=== PATIENT | male | born 1970 | race African-American/Black ===

== ENCOUNTER 2019-01-25 11:42 | Emergency (ER) | payer OTHER ==
[2019-01-25 12:06] VITALS: BP 106/76; PULSE 72; TEMP 98.2; BMI 20.8
[2019-01-25] MEDS ORDERED: SODIUM CHLORIDE 1,000 ML IV STA (12:53)
--- NOTE | 2019-01-25 12:54 | PDOC ---
History of Present Illness - General Chief Complaint: Pain Stated Complaint: ABD PAIN Time Seen by Provider: 01/25/19 12:21 History Source: Patient Exam Limitations: No Limitations - History of Present Illness Initial Comments: 01/25/19 12:43 48 yo male pmh of right inguinal hernia repair and recurrent kidney stones requiring 3 surgical removals presents to the ED for LUQ pain radiating to left flank. Pt states the pain started 1 month ago, intermittent, made worse and is mainly present with walking, denies correlation of pain with food. Denies changes in bladder habits, F/C/N/V, denies back pain, CP, SOB, alcohol use. Pt does not recall Urologist. Past History - Past Medical History Allergies/Adverse Reactions: Allergies Allergy/AdvReac Type Severity Reaction Status Date / Time Penicillins Allergy Mild Verified 05/27/12 19:26 Home Medications: Ambulatory Orders No Home Medications 0 dose .ROUTE UTDICT 05/27/12 Oxycodone HCl/Acetaminophen [Percocet 5-325 mg Tablet] 1 - 2 tab PO Q6H #20 tablet 05/28/12 COPD: No Kidney Stones: Yes - Surgical History Abdominal Surgery: Yes (hernia repair) - Immunization History Immunization Up to Date: No - Suicide/Smoking/Psychosocial Hx Smoking Status: Yes Smoking History: Unknown if ever smoked Years of Tobacco Use: 20 Have you smoked in the past 12 months: No Number of Cigarettes Smoked Daily: 8 Information on smoking cessation initiated: No Hx Alcohol Use: No Drug/Substance Use Hx: No *Physical Exam - Vital Signs Last Vital Signs Temp Pulse Resp BP Pulse Ox 98.2 F 72 18 106/76 100 01/25/19 11:55 01/25/19 11:55 01/25/19 11:55 01/25/19 11:55 01/25/19 11:55 *DC/Admit/Observation/Transfer Diagnosis at time of Disposition: Abdominal pain - Discharge Dispostion Disposition: HOME Condition at time of disposition: Stable Decision to Admit order: No - Referrals Referrals: Blake Ryan MD [Primary Care Provider] - - Patient Instructions Printed Discharge Instructions: DI for Abdominal Pain-Adult Additional Instructions: Please see your Primary Doctor within the next 48 hours and discuss the X ray results printed out for you regarding a nodule. Take over the counter pain medication as needed such as Motrin or Tylenol for continued pain. Return to the ER for new or concerning symptoms including but not limited to: inability to eat or drink, high fevers, severe abdominal pain, chest pain. Thank you - Post Discharge Activity
[2019-01-25 13:20] LABS: PH,URINE 5.5 (5.0-8.0); URINE APPEARANCE CLEAR; URINE BILIRUBIN NEGATIVE (NEGATIVE); URINE COLOR YELLOW; URINE GLUCOSE (UA) NEGATIVE (NEGATIVE); URINE KETONE TRACE (NEGATIVE); URINE LEUK ESTERASE NEGATIVE (NEGATIVE); URINE NITRITE NEGATIVE (NEGATIVE); URINE PROTEIN NEGATIVE (NEGATIVE)
[2019-01-25] MEDS ORDERED: KETOROLAC TROMETHAMINE 15 MG/ML VIAL IVPUSH ONE (13:35)
[2019-01-25] MEDS ORDERED: KETOROLAC TROMETHAMINE 15 MG/ML VIAL ONE (13:38)
[2019-01-25 13:42] LABS: BASO % 0.7 % (0-2.0); EOS % 1.3 % (0-4.5); HEMATOCRIT 40.1 % (35.4-49); HEMOGLOBIN 13.6 GM/dL (11.7-16.9); LYMPH % 31.8 % (8-40); MCH 30.7 pg (25.7-33.7); MEAN CELL VOLUME 90.6 fl (80-96); MEAN PLT VOLUME 7.5 fl (7.5-11.1); MONO % 13.6 % (3.8-10.2); NEUT % 52.6 % (42.8-82.8); PLATELET COUNT 216 K/MM3 (134-434); RBC 4.43 M/mm3 (4.00-5.60); RDW 12.7 % (11.9-15.9); WHITE BLOOD COUNT 4.4 K/mm3 (4.0-10.0)
[2019-01-25 14:07] LABS: ALBUMIN 3.7 g/dl (3.4-5.0); BILIRUBIN,TOTAL 0.6 mg/dL (0.2-1); CREATININE 1.1 mg/dL (0.55-1.3); POTASSIUM 4.2 mmol/L (3.5-5.1); TOT PROT 6.6 g/dl (6.4-8.2)
--- NOTE | 2019-01-25 14:55 | PDOC ---
Documentation entered by Fidelina Mix SCRIBE, acting as scribe for Slava Myrick MD. Slava Myrick MD: This documentation has been prepared by the scribe, Fidelina Mix SCRIBE, under my direction and personally reviewed by me in its entirety. I confirm that the documentation accurately reflects all work, treatment, procedures, and medical decision making performed by me. Attending Attestation - Resident Resident Name: Mayco Danielle - ED Attending Attestation I have performed the following: I have examined & evaluated the patient, The case was reviewed & discussed with the resident, I agree w/resident's findings & plan, Exceptions are as noted - HPI HPI: 01/25/19 13:23 48y M hx of kidney stones, presents with LUQ pain intermittently for approx 1month - seems to be worse when he is ambulating, no relation to food denies any n/v, fever/chills, dysuria, hematuria, back pain, cp, sob. denies etoh/abuse. pt notes pain feels similar to prior kidney stones. no trauma/falls/heavy lifting recently 01/25/19 13:35 GENERAL: The patient is awake, alert, and fully oriented, Nontoxic - in no acute distress. HEAD: Normocephalic, atraumatic. EYES: extraocular movements intact, sclera anicteric, conjunctiva clear. ENT: Normal voice, Moist mucous membranes. NECK: Normal range of motion, supple LUNGS: Breath sounds equal, clear to auscultation bilaterally. No wheezes, no rhonchi, no rales. HEART: Regular rate and rhythm, normal S1 and S2 without murmur, rub or gallop. ABDOMEN: Soft, minimal ttp at the proximal insertion of the rectus abdominus, + palpable fingerlike projecton that is nontender on the LUQ. No CVA ttp EXTREMITIES: Normal range of motion, no edema. No cords, erythema, or tenderness. NEUROLOGICAL: No facial assymetry, Normal speech, movin gall 4 ext spontaneously and symmetrically PSYCH: Normal mood, normal affect. SKIN: Warm, Dry, normal turgor, suspect msk cause of his abd pain pain worse with sittin gup and b/l hip flexion will obtain rib series will obtain UA to rscreen for hematuria toradol for pain will reassesss - Physicial Exam PE: 01/27/19 17:17 see above - Medical Decision Making 01/25/19 15:00 pts labs reviewed pts pain improved will dc with pmd fu suspect msk as cuase there were some pulm nodules noted will have pt fu as outpatient for repeat imaging
== END 2019-01-25 15:19 | disposition home or self-care (01) ==
LOC: JER 11:42
PROC: 3E0337Z Introduction of Electrolytic and Water Balance Substance into Peripheral Vein, Percutaneous Approach (ICD-10-PCS; principal; 2019-01-25)
PROC: 3E0333Z Introduction of Anti-inflammatory into Peripheral Vein, Percutaneous Approach (ICD-10-PCS; 2019-01-25)
DX: R10.9 Unspecified abdominal pain (principal)
CPT/HCPCS: 36415; 71046-TC-FY; 71101-TC-LT-FY; 80053; 81003; 83690; 85025; 96361; 96374; 99282-25; J7030